=== PATIENT | male | born 1960 | race Caucasian/White ===

== ENCOUNTER 2016-06-03 09:15 | Emergency (ER) | payer OTHER ==
[2016-06-03 10:01] VITALS: BP 149/80; PULSE 96; RESP 16; TEMP 98.4; O2SAT 90
--- NOTE | 2016-06-03 10:50 | UCPHY ---
H & P Time Seen by Provider: 06/03/16 10:49 HPI/ROS: CHIEF COMPLAINT: HISTORY OF PRESENT ILLNESS: P: Q: R: S: T: REVIEW OF SYSTEMS: Constitutional: No fever, no chills. Eyes: No diplopia. ENT: No sore throat. Cardiovascular: No chest pain, no palpitations. Respiratory: No cough, no shortness of breath, no wheezing. Gastrointestinal: No nausea vomiting or diarrhea. No abdominal pain. Genitourinary: No hematuria or frequency. Musculoskeletal: No back pain. Skin: No rashes. Neurological: No headache. 10 point ROS otherwise negative Smoking Status: Current some day smoker Physical Exam: General Appearance: Alert, no distress. Afebrile. Normal phonation. No respiratory distress. Eyes: Pupils equal and round no pallor or injection. No icterus ENT, Mouth: Mucous membranes moist. Pharynx not erythematous and without exudate. TM Clear. Neck: No adenopathy. Supple. No JVD. Trachea in midline. Respiratory: There are no retractions, lungs are clear to auscultation. Cardiovascular: Regular rate and rhythm. Abdomen: Soft and nontender, no masses, bowel sounds normal. Femoral pulses equal. Neurological: Ox3. No motor weakness. Sensation intact. Gait nl. Skin: Warm and dry, no rashes. Musculoskeletal: No joint swelling. Extremities: No edema. Homans sign negative. No cords. Psychiatric: Patient is oriented X 3, there is no agitation Constitutional: Initial Vital Signs Temperature (C) 36.9 C 06/03/16 09:55 Heart Rate 96 06/03/16 09:55 Respiratory Rate 16 06/03/16 09:55 Blood Pressure 149/80 H 06/03/16 09:55 O2 Sat (%) 90 L 06/03/16 09:55 O2 Delivery Mode Room Air Allergies/Adverse Reactions: No Known Allergies Allergy (Verified 06/03/16 10:09) Home Medications: Medication Instructions Recorded Citalopram 10/23/15 GABAPENTIN 10/23/15 Lisinopril 06/03/16 Medical Decision Making - Data Points Laboratory Results: 06/03/16 10:25 Influenza Typ A,B (DFA) NEGATIVE FOR FLU (NEGATIVE) Departure - Departure Referrals: Nini Morley [Primary Care Provider] - As per Instructions
[2016-06-03] MEDS ORDERED: ALBUTEROL 3 ML DEYVIAL IH ONE (11:11)
--- NOTE | 2016-06-03 11:28 | UCPHY ---
H & P Time Seen by Provider: 06/03/16 10:49 Patient Type: Established HPI/ROS: CHIEF COMPLAINT: Cough HISTORY OF PRESENT ILLNESS: 55-year-old male presents to urgent care by private vehicle complaining of cough over the last 2-3 days. The patient felt that his symptoms became acutely worse last night. He now feels feverish and chilled. He has had bronchitis multiple times. He has had pneumonia in the past as well. He is staying with his father who is currently undergoing chemotherapy. The patient did not receive a flu shot. He has noticed some chest tightness. Denies headaches. Denies neck or back pain. Denies recent travel. He has never see flu shots in the past. No known ill contacts. REVIEW OF SYSTEMS: Constitutional: Subjective fevers, chills Eyes: No double or blurry vision. ENT: No sore throat. Respiratory: Cough, mild shortness of breath Cardiac: No chest pain. Gastrointestinal: No abdominal pain, vomiting or diarrhea. Genitourinary: No dysuria. Musculoskeletal: No neck or back pain. Skin: No rashes. Neurological: No headache. Past Medical/Surgical History: Chronic smoker, hypertension Social History: Single and lives in [place] Smoking Status: Current some day smoker Physical Exam: General Appearance: Alert, no distress. 90% on room air. 149/80, temperature 36.9 Eyes: Pupils equal and round. Extraocular motions are all intact. ENT: Mouth: Mucous membranes moist. Respiratory: Decreased breath sounds especially in the bases. Occasional expiratory rhonchi noted throughout. No rales. No respiratory distress or retractions. Cardiovascular: Regular rate and rhythm. Gastrointestinal: Abdomen is soft and nontender, no masses, no rebound or guarding, bowel sounds normal. Neurological: Alert and oriented x 3, cranial nerves II through XII grossly intact Skin: Warm and dry, no rashes. Musculoskeletal: Nontender to palpate along the cervical, thoracic or lumbar spine. Neck is supple. Extremities: Full range of motion and no peripheral edema. Psychiatric: Patient is oriented X 3, there is no agitation. Constitutional: Initial Vital Signs Temperature (C) 36.9 C 06/03/16 09:55 Heart Rate 96 06/03/16 09:55 Respiratory Rate 16 06/03/16 09:55 Blood Pressure 149/80 H 06/03/16 09:55 O2 Sat (%) 90 L 06/03/16 09:55 O2 Delivery Mode Room Air Allergies/Adverse Reactions: No Known Allergies Allergy (Verified 06/03/16 10:09) Home Medications: Medication Instructions Recorded Citalopram 10/23/15 GABAPENTIN 10/23/15 Albuterol [Proventil Inhaler HFA 1 - 2 puffs IH Q4PRN PRN #1 mdi 06/03/16 (*)] Lisinopril 06/03/16 levOFLOXACIN [Levaquin] 750 mg PO DAILY 5 Days 06/03/16 Medical Decision Making - Diagnostics Imaging: Chest x-ray reveals right upper lobe pneumonia. This is reviewed by myself the PAC system as well as discussed by radiologist. ED Course/Re-evaluation: 55-year-old male was a chronic smoker presents with URI symptoms. He now has a productive cough and feeling feverish and chilled. He has had bronchitis and pneumonia multiple times. He did not receive a flu shot this year. Rapid influenza swab obtained by nurse was negative. Patient was given albuterol nebulizer at urgent care with some relief. Chest x-ray reveals right upper lobe pneumonia. This was discussed with the radiologist as well. The patient will be started on Levaquin q.day for 5 days. Instructed to have close follow-up with primary care provider for repeat chest x-ray in 1 month. Patient verbalized understanding and agreed. I doubt pulmonary embolism. The patient has no calf pain or cramping or swelling. No recent travel. Denies pleuritic chest pain. I did encourage the patient to stop smoking. Differential Diagnosis: Including but not limited to bronchitis, pneumonia, influenza, viral upper respiratory infection, COPD - Data Points Laboratory Results: 06/03/16 10:25 Influenza Typ A,B (DFA) NEGATIVE FOR FLU (NEGATIVE) Medications Given: Discontinued Medications Albuterol (Proventil Neb) 3 ml IH EDNOW ONE Stop: 06/03/16 11:12 Last Admin: 06/03/16 11:22 Dose: 3 ml Departure - Departure Disposition: Home, Routine, Self-Care Clinical Impression: Pneumonia Qualifiers: Pneumonia type: due to unspecified organism Laterality: right Lung location: upper lobe of lung Qualified Code(s): J18.1 - Lobar pneumonia, unspecified organism Condition: Good Instructions: How to Stop Smoking (ED), Pneumonia (ED) Additional Instructions: Albuterol inhaler 2 puffs every 4 hours for one week and then as needed. Levaquin as directed for 5 days. Return if you develop a fever, shortness of breath, or if you feel worse in any way. Repeat chest x-ray with your primary care provider in 1 month to make sure the consolidation has resolved. Referrals: Nini Morley [Primary Care Provider] - As per Instructions Prescriptions: Albuterol [Proventil Inhaler HFA (*)] 1 - 2 puffs IH Q4PRN PRN #1 mdi PRN Reason: Short Of Breath/Dyspnea levOFLOXACIN [Levaquin] 750 mg PO DAILY 5 Days - PQRS PQRS Measurement: Not applicable
== END 2016-06-03 12:18 | disposition home or self-care (01) ==
LOC: CED 09:15
DX: J18.1 Lobar pneumonia, unspecified organism (principal); I10 Essential (primary) hypertension; F17.210 Nicotine dependence, cigarettes, uncomplicated
CPT/HCPCS: 71020-PO; 87400-PO; 99214-PO; G0463-PO

== ENCOUNTER 2016-08-11 11:36 | Emergency (ER) | payer OTHER ==
--- NOTE | 2016-08-11 11:43 | EDPHY ---
H & P HPI/ROS: CHIEF COMPLAINT: Relapsed on crack cocaine, chest pain. HISTORY OF PRESENT ILLNESS: The patient is a 55-year-old male with a history of hypertension who presents after relapsing on crack cocaine last night. He is complaining of shakiness, headache, nausea, and one week of left-sided chest pain. The chest pain does not radiate and is not worsened with movement or breathing. It is a dull aching sensation. He has no significant family cardiac history. He had been off of crack cocaine for the past 4 years. He last used a few hours ago--he has been binging all night. No IVDA. He denies shortness of breath, fever, cough, back pain, or other complaints. He has been under a lot of family stress taking care of his terminally ill father. He was last seen at [facility] 2 months ago for pneumonia. REVIEW OF SYSTEMS: A 10 point review of systems was performed and is negative with the exception of the elements mentioned in the history of present illness. Source: Patient Exam Limitations: No limitations - Medical/Surgical History Hx Asthma: No Hx Chronic Respiratory Disease: No Hx Diabetes: No Hx Cardiac Disease: No Hx Renal Disease: No Hx Cirrhosis: No Hx Alcoholism: Yes Hx HIV/AIDS: No Hx Splenectomy or Spleen Trauma: No Other PMH: 1. Pneumonia. 2. Hypertension. 3. Depression - Social History Smoking Status: Current some day smoker Alcohol Use: None Drug Use: Other (Crack cocaine use within the past 24 hours after 4 years of sobriety) Additional Social History: Smokes half a pack of cigarettes per day. History of crack cocaine abuse, 4 years of sobriety until yesterday Recovering alcoholic (sober for 2 years). Works at [employer] in [place]. He is living with his father who is being treated for terminal cancer. - Physical Exam Exam: General Appearance: Alert, no acute distress. BP 142/75. Heart rate 128. Eyes: Pupils equal and round, no conjunctival injection, no discharge. Anicteric. ENT, Mouth: Mucous membranes are dry, no oropharyngeal erythema or edema. Edentulous mandible. Neck: No lymphadenopathy, supple. Trachea midline. No jugular venous distention. Respiratory: Lungs are clear to auscultation; no wheezes, rales, or rhonchi. Breath sounds distant but equal. Cardiovascular: Tachycardic; no murmur, rub, or gallop. Gastrointestinal: Abdomen is soft and nontender, no masses or organomegaly, bowel sounds normal. Skin: Warm and dry, no rashes, normal color. Back: Nontender to palpation over the thoracolumbar spine. Extremities: No lower extremity edema, no calf tenderness or swelling. Neurological: Alert and oriented. Moving all four extremities easily and equally. RHIANNON. EOMI. Tongue midline. Facial expressions symmetric. Psychiatric: Normal affect. No agitation. Constitutional: Initial Vital Signs Temperature (C) 36.9 C 08/11/16 11:50 Heart Rate 96 08/11/16 11:50 Respiratory Rate 16 08/11/16 11:50 Blood Pressure 142/75 H 08/11/16 11:50 O2 Sat (%) 128 H 08/11/16 11:50 O2 Delivery Mode Nasal Cannula O2 (L/minute) 2 Allergies/Adverse Reactions: No Known Allergies Allergy (Verified 08/11/16 11:53) Home Medications: Medication Instructions Recorded Lisinopril 06/03/16 Lexapro 08/11/16 Medical Decision Making - Diagnostics EKG Interpretation: The 12 lead EKG was interpreted by myself. See hard copy and/or "tracemaster" electronic copy for interpretation. Sinus tachycardia rate 106. Probable left ventricular hypertrophy. Imaging Results: Imaging Impressions Chest X-Ray 08/11/16 12:02 Impression: 1. Query COPD/chronic bronchitis with no superimposed acute abnormality identified. 2. Resolution of prior right midlung pneumonia. Results called and discussed with MARISA KOLB M.D. on 08/11/2016 at 12:46 Imaging: I viewed and interpreted images myself ED Course/Re-evaluation: 55-year-old male presents with headache, nausea, and chest pain after relapsing on crack cocaine last night. He had not used in 4 years. An IV was established and labs ordered. EKG, chest x-ray obtained. 324mg PO Aspirin, 1mg IV Ativan, and 1L IV saline administered. WBC elevated at 17.30. Troponin slightly elevated at 0.040. 1247: Patient is still feeling jittery and nauseated. Additional 1mg Ativan administered along with 4mg IV Zofran. No chest pain. 1255: Reassessed patient. Discussed results of workup so far. I recommended admission to him. He would like to confer with his sister before deciding whether he would like to be admitted to [facility] or [facility]. 1325: Resting. No chest pain. 1355: Reassessed patient. We have been unable to reach his sister after multiple attempts. He reports that he has had intermittent chest pain while in the ED, brief episodes lasting seconds only.. He would like to be admitted to [facility]. 1412: Spoke with [facility] call center about direct admission for the patient. They have no open monitored beds. The patient's second choice is [facility]. 1428: Spoke with [facility] call center. 1439: I consulted with the accepting physician from [facility], Dr. Rowley. Transportation being arranged. 1535: No current chest pain. I doubt that this is an acute coronary syndrome. He has been experiencing intermittent chest pain over the past week though and with his recent cocaine use myocardial ischemia is certainly a possibility. I have not found evidence of pneumonia or other infection. His chest x-ray does not show pneumothorax. His tachycardia has persisted but improved. Current heart rate around 100. He has been hypertensive in the emergency department. He tells me that he did not take today's antihypertensive medication. He cannot recall the name of his medication. Most recent blood pressure was 142/ 90. Differential Diagnosis: I considered a differential diagnosis of chest pain, particularly cocaine induced chest pain that includes but is not limited to acute coronary syndrome, aortic dissection, myocarditis, cardiomyopathy, cardiac arrhythmia, coronary artery aneurysm, and CVA. Other considerations include pneumonia or other infectious causes, pneumothorax, pleurisy, costochondritis, and pericarditis. - Data Points Laboratory Results: Laboratory Results 08/11/16 12:10 08/11/16 12:10 08/11/16 08/11/16 12:10 12:10 WBC 17.30 10^3/uL H 10^3/uL (3.80-9.50) RBC 5.09 10^6/uL 10^6/uL (4.40-6.38) Hgb 15.1 g/dL g/dL (13.7-17.5) Hct 43.0 % % (40.0-51.0) MCV 84.5 fL fL (81.5-99.8) MCH 29.7 pg pg (27.9-34.1) MCHC 35.1 g/dL g/dL (32.4-36.7) RDW 12.9 % % (11.5-15.2) Plt Count 324 10^3/uL 10^3/uL (150-400) MPV 8.9 fL fL (8.7-11.7) Neut % (Auto) 81.7 % H % (39.3-74.2) Lymph % (Auto) 10.1 % L % (15.0-45.0) Reagan % (Auto) 7.5 % % (4.5-13.0) Eos % (Auto) 0.2 % L % (0.6-7.6) Baso % (Auto) 0.2 % L % (0.3-1.7) Nucleat RBC Rel Count 0.0 % % (0.0-0.2) Absolute Neuts (auto) 14.13 10^3/uL H 10^3/uL (1.70-6.50) Absolute Lymphs (auto) 1.74 10^3/uL 10^3/uL (1.00-3.00) Absolute Monos (auto) 1.30 10^3/uL H 10^3/uL (0.30-0.80) Absolute Eos (auto) 0.03 10^3/uL 10^3/uL (0.03-0.40) Absolute Basos (auto) 0.04 10^3/uL 10^3/uL (0.02-0.10) Absolute Nucleated RBC 0.00 10^3/uL 10^3/uL (0-0.01) Immature Gran % 0.3 % % (0.0-1.1) Immature Gran # 0.06 10^3/uL 10^3/uL (0.00-0.10) Sodium 142 mEq/L mEq/L (134-144) Potassium 3.7 mEq/L mEq/L (3.5-5.2) Chloride 103 mEq/L mEq/L (97-110) Carbon Dioxide 21 mEq/l L mEq/l (22-31) Anion Gap 18 mEq/L H mEq/L (8-16) BUN 24 mg/dL H mg/dL (7-23) Creatinine 0.8 mg/dL mg/dL (0.7-1.3) Estimated GFR > 60 Glucose 108 mg/dL H mg/dL (70-100) Calcium 9.9 mg/dL mg/dL (8.5-10.4) Troponin I 0.040 ng/mL H ng/mL (0-0.034) Medications Given: Discontinued Medications Aspirin (Aspirin) 324 mg PO EDNOW ONE Stop: 08/11/16 12:02 Last Admin: 08/11/16 12:06 Dose: 324 mg Sodium Chloride (Ns) 1,000 mls @ 0 mls/hr IV ONCE ONE PRN Reason: Wide Open Stop: 08/11/16 12:02 Last Admin: 08/11/16 12:01 Dose: 1,000 mls Lorazepam (Ativan Injection) 1 mg IVP EDNOW ONE Stop: 08/11/16 12:12 Last Admin: 08/11/16 12:10 Dose: 1 mg Lorazepam (Ativan Injection) 1 mg IVP EDNOW ONE Stop: 08/11/16 12:54 Last Admin: 08/11/16 13:02 Dose: 1 mg Ondansetron HCl (Zofran) 4 mg IVP EDNOW ONE Stop: 08/11/16 12:54 Last Admin: 08/11/16 13:00 Dose: 4 mg Departure - Departure Disposition: Acute Care Hospital Not [facility] Clinical Impression: Elevated troponin, Crack cocaine use Chest pain Qualifiers: Chest pain type: unspecified Qualified Code(s): R07.9 - Chest pain, unspecified Condition: Fair Referrals: Nini Morley [Non Staff and Non MD] - As per Instructions Report Scribed for: Marisa Kolb Report Scribed by: Steven Gould Date of Report: 08/11/16 Time of Report: 11:43 Physician Review and Approval Statement: 08/11/16 13:28 Portions of this note were transcribed by the manager medical writing. I, Dr. Marisa Kolb, personally performed the history, physical exam, and medical decision- making; and confirmed the accuracy of the information in the transcribed note.
[2016-08-11] MEDS ORDERED: NS 1,000 ML IV ONE (12:01)
[2016-08-11] MEDS ORDERED: ASPIRIN 81 MG CHEWABLE TAB PO ONE (12:01)
--- NOTE | 2016-08-11 12:06 | CPEKG ---
Heart Rate: 106 RR Interval: 566 P-R Interval: 136 QRSD Interval: 96 QT Interval: 348 QTC Interval: 463 P Kountze: 81 QRS Kountze: 89 T Wave Kountze: 55 EKG Severity - ABNORMAL ECG - EKG Impression: SINUS TACHYCARDIA EKG Impression: PROBABLE LEFT VENTRICULAR HYPERTROPHY Electronically Signed By: Kendra Kolb 11-Aug-2016 12:21:31
[2016-08-11] MEDS ORDERED: LORazepam 2 MG/ML INJ IVP ONE ×2 (12:11→12:53)
[2016-08-11 12:16] LABS: % IMMATURE GRANULYOCYTES 0.3 % (0.0-1.1); ABSOLUTE IMMATURE GRANULOCYTES 0.06 10^3/uL (0.00-0.10); ADD DIFF? NO; ADD MORPH? NO; ADD SCAN? NO; ATYPICAL LYMPHOCYTE FLAG 0 (0-99); FRAGMENT RBC FLAG 0 (0-99); HEMOGLOBIN 15.1 g/dL (13.7-17.5); LEFT SHIFT FLG 0 (0-99); LIPEMIA HEMOLYSIS FLAG 90 (0-99); MEAN CELL HEMOGLOBIN 29.7 pg (27.9-34.1); MEAN CELL HEMOGLOBIN CONCENTR. 35.1 g/dL (32.4-36.7); MEAN CELL VOLUME 84.5 fL (81.5-99.8); MEAN PLATELET VOLUME 8.9 fL (8.7-11.7); PLATELET CLUMPS FLAG 10 (0-99); PLATELET COUNT 324 10^3/uL (150-400); RED BLOOD CELL COUNT 5.09 10^6/uL (4.40-6.38); RED CELL DISTRIBUTION WIDTH 12.9 % (11.5-15.2)
[2016-08-11 12:30] LABS: ANION GAP 18 mEq/L (8-16); CALCIUM 9.9 mg/dL (8.5-10.4); CARBON DIOXIDE 21 mEq/l (22-31); CHLORIDE 103 mEq/L (97-110); CREATININE 0.8 mg/dL (0.7-1.3); GLOMERULAR FILTRATION RATE > 60; GLUCOSE 108 mg/dL (70-100); POTASSIUM 3.7 mEq/L (3.5-5.2); SODIUM 142 mEq/L (134-144)
[2016-08-11] MEDS ORDERED: ONDANSETRON 4 MG/2 ML VIAL IVP ONE (12:53)
[2016-08-11 15:57] VITALS: BP 145/88; PULSE 93; RESP 18; TEMP 98.6; O2SAT 94
== END 2016-08-11 15:45 | disposition short-term general hospital (02) ==
LOC: CED 11:36
DX: R07.9 Chest pain, unspecified (principal); R79.89 Other specified abnormal findings of blood chemistry; F14.90 Cocaine use, unspecified, uncomplicated; I10 Essential (primary) hypertension; F17.210 Nicotine dependence, cigarettes, uncomplicated
CPT/HCPCS: 71020-PO; 80048-PO; 84484-PO; 85025-PO; 96374; J2060; J2405